=== PATIENT | female | born 1950 | race Caucasian/White ===

== ENCOUNTER 2019-06-22 13:18 | Outpatient (CLI) | payer MEDICARE, OTHER ==
--- NOTE | 2019-06-22 14:07 | ULT ---
BILATERAL RENAL SONOGRAM: Date: 06/22/19 HISTORY: Recurrent urinary tract infection. FINDINGS: The kidneys demonstrate a normal sonographic appearance bilaterally without evidence of a renal mass, renal calculus, or hydronephrosis. The right kidney measures 10.7 cm x 4.6 cm, with the left kidney measuring 10.3 cm x 4.6 cm. The urinary bladder is partially distended and grossly normal in appearance. The pre-void urinary nehal dder volume is 217.99 mL, with a post-void urinary bladder volume of 188.16 mL. IMPRESSION: 1. Normal appearing kidneys bilaterally without evidence of hydronephrosis. 2. Evidence of a post-void residual. POS: [facility]
== END 2019-06-22 13:19 | disposition home or self-care (01) ==
LOC: BICULT 13:18
PROVIDERS: ATTEND Family Medicine
DX: N39.0 Urinary tract infection, site not specified (principal)
CPT/HCPCS: 76770

== ENCOUNTER 2020-04-09 10:32 | Outpatient (CLI) | payer MEDICARE, OTHER ==
--- NOTE | 2020-04-09 14:24 | CT ---
CT ABDOMEN AND PELVIS WITH AND WITHOUT CONTRAST: HISTORY: Recurrent urinary tract infection. COMPARISON: Reference is made to an ultrasound of 06/22/2018. FINDINGS: Mild mosaic attenuation of the lung bases suggesting either chronic small airway or vessel disease. No pericardial effusion. On the noncontrast portion of the examination there is no nephroureteral lithiasis or hydroureteral n ephrosis. No secondary evidence of recently passed stone. A small fat-containing mass left adrenal gland suggesting adenoma. Small volume fluid along the jose martin iated fat adjacent to the esophagus. There is thickening around the GE junction which could reflect a prior fundoplication procedure. No enhancing urothelial mass. Small hypodensity of the posterior cortex interpolar left kidney sugge sts a cyst measuring 5 mm. No abnormal enhancing mass to the urinary bladder. On the delayed phase of contrast, the renal calyces are sharp. Renal pelves and ureters and posterio r urinary bladder are without filling defects. Moderate diverticular disease of the sigmoid colon without active current inflammation. No acute oss eous abnormality. 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 IMPRESSION: 1. No nephroureteral lithiasis or hydroureteral nephrosis. No significant evidence of a recently pa ssed stone. 2. Abnormal thickening along the gastroesophageal junction could be sequelae of a prior Paulo fundo plication. If there is no such surgery, upper endoscopy is recommended. Small volume fluid within th e fat which is herniated adjacent to the esophageal hiatus. 3. No abnormal enhancing urothelial nor intraparenchymal renal mass. 4. Small cyst posterior cortex interpolar left kidney measuring 5 mm. 5. Moderate diverticular disease sigmoid colon without active inflammation. POS: AH
== END 2020-04-09 10:33 | disposition home or self-care (01) ==
LOC: BICCT 10:32
PROVIDERS: ATTEND Urology
DX: R31.29 Other microscopic hematuria (principal); K57.30 Diverticulosis of large intestine without perforation or abscess without bleeding; N28.1 Cyst of kidney, acquired; K22.8 Other specified diseases of esophagus
CPT/HCPCS: 74178; 82565